=== PATIENT | female | born 1965 | race Native Hawaiian/Other Pacific Islander ===

== ENCOUNTER 2022-01-25 22:42 | Emergency (ER) | payer OTHER ==
[~2022-01-25] VITALS: Ht 157.5 cm; Wt 49.9 kg
[2022-01-25 22:55] VITALS: TEMP 98.3
[2022-01-26 02:08] VITALS: BP 102/56
== END 2022-01-26 02:08 | disposition home or self-care (01) ==
LOC: ED 22:42
DX: H26.8 Other specified cataract (principal); H40.89 Other specified glaucoma
CPT/HCPCS: 96372; 99283; J2270; J2550

== ENCOUNTER 2022-01-28 02:49 | Emergency (ER) | payer OTHER ==
[~2022-01-28] VITALS: Ht 157.5 cm; Wt 49.9 kg
[2022-01-28 03:00] VITALS: TEMP 98.7
[2022-01-28 10:45] VITALS: BP 110/58
== END 2022-01-28 10:45 | disposition home or self-care (01) ==
LOC: ED 02:49
DX: H57.11 Ocular pain, right eye (principal)
CPT/HCPCS: 96374; 96375; 99284; J1885; J2270; J2405

== ENCOUNTER 2022-10-03 11:41 | Outpatient (CLI) | payer OTHER | END 2022-10-03 19:25 | disposition home or self-care (01) | LOC: RAD 11:41 | PROVIDERS: ATTEND Family Medicine | DX: R05.9 Cough, unspecified (principal); J44.9 Chronic obstructive pulmonary disease, unspecified; F17.200 Nicotine dependence, unspecified, uncomplicated ==

== ENCOUNTER 2022-12-18 14:52 | Outpatient (CLI) | payer OTHER | END 2022-12-18 19:13 | disposition home or self-care (01) | LOC: MAMMO 14:52 | PROVIDERS: ATTEND Family Medicine | DX: Z12.31 Encounter for screening mammogram for malignant neoplasm of breast (principal) ==

== ENCOUNTER 2023-01-01 16:53 | Outpatient (CLI) | payer OTHER | END 2023-01-01 22:00 | disposition home or self-care (01) | LOC: RAD 16:53 | PROVIDERS: ATTEND Family Medicine | DX: M54.2 Cervicalgia (principal); M54.89 Other dorsalgia ==

== ENCOUNTER 2023-01-04 15:16 | Outpatient (CLI) | payer OTHER | END 2023-01-04 21:55 | disposition home or self-care (01) | LOC: US 15:16 | PROVIDERS: ATTEND Family Medicine | DX: Z86.39 Personal history of other endocrine, nutritional and metabolic disease (principal); R59.0 Localized enlarged lymph nodes ==